=== PATIENT | female | born 1955 | race Caucasian/White ===

== ENCOUNTER 2016-08-01 | Emergency (ER) | payer MEDICARE ==
[~2016-08-01] MED LIST: ASPIRIN325 MG PO; BENAZEPRIL-HCT1 EAC1 PO; CARDIZEM SR 60M60 MG PO; CHANTIX0.5 MG PO; COMBIVENT0.074 GM/I INH; ELIQUIS 5 MG TAB5 MG PO; GABAPENTIN800 MG PO; GLUCOPHAGE1000 MG PO; HYDROCHLOROTHIA25 MG PO; IPRAT-ALBUT 0.5-3 ML INH; JANUVIA 100 MG100 MG PO; LEVEMIR FL100 UNIT/1 SQ; MEDROL DOSEPAK 24 MG PO; METOPROLOL TART25 MG PO; NEXIUM40 MG PO; NOVOLOG FL100 UNIT/1 SQ; NOVOLOG100 UNIT/1 SQ; PERCOCET 5-3251 EACH PO; SYMBICORT 160-1 INHA INH; VALIUM 5 MG TAB5 MG PO; VENTOLIN HFA 66.7 GM INH
[2016-08-01 23:09] LABS: HEMOGLOBIN 11.3 gm/dl (12.3-15.3); RED BLOOD COUNT 4.25 M/UL (4.00-5.10); WHITE BLOOD COUNT 16.8 K/UL (4.5-11.0)
[2016-12-23] MEDS ORDERED: GLUCOPHAGE1000 MG PO (09:35)
[2016-12-23] MEDS ORDERED: DILTIAZEM 24HR120 M1 PO (09:36)
[2016-12-23] MEDS ORDERED: PROVENTIL HFA6.7 GM INH (09:40)
[2016-12-23] MEDS ORDERED: NYSTATIN1 EAC5 TOP (09:42)
[2016-12-23] MEDS ORDERED: DICLOFENAC SODI75 MG PO (09:43)
[2016-12-23] MEDS ORDERED: COMBIVENT0.074 GM/I INH (09:44)
[2016-12-23] MEDS ORDERED: SYMBICORT 16010.2 GM INH (09:46)
== END 2016-08-02 03:07 | disposition home or self-care (01) ==
PROVIDERS: Family Medicine
DX: R10.11 Right upper quadrant pain (principal); R10.12 Left upper quadrant pain; R10.13 Epigastric pain; G89.29 Other chronic pain; E11.65 Type 2 diabetes mellitus with hyperglycemia; Z90.49 Acquired absence of other specified parts of digestive tract; Z87.891 Personal history of nicotine dependence; Z79.84 Long term (current) use of oral hypoglycemic drugs; Z79.4 Long term (current) use of insulin; Z79.899 Other long term (current) drug therapy
CPT/HCPCS: 36415; 80053; 81001; 82150; 82962; 83605; 83690; 85025; 96372; 99284; J1815

== ENCOUNTER 2016-09-03 22:06 | Emergency (ER) | payer MEDICARE ==
[2016-09-03 22:51] LABS: HEMOGLOBIN 12.2 gm/dl (12.3-15.3); RED BLOOD COUNT 4.58 M/UL (4.00-5.10)
[2016-09-06 16:24] LABS: WHITE BLOOD COUNT 20.4 K/UL (4.5-11.0)
[2016-12-23] MEDS ORDERED: GLUCOPHAGE1000 MG PO (09:35)
[2016-12-23] MEDS ORDERED: DILTIAZEM 24HR120 M1 PO (09:36)
[2016-12-23] MEDS ORDERED: PROVENTIL HFA6.7 GM INH (09:40)
[2016-12-23] MEDS ORDERED: NYSTATIN1 EAC5 TOP (09:42)
[2016-12-23] MEDS ORDERED: DICLOFENAC SODI75 MG PO (09:43)
[2016-12-23] MEDS ORDERED: COMBIVENT0.074 GM/I INH (09:44)
[2016-12-23] MEDS ORDERED: SYMBICORT 16010.2 GM INH (09:46)
== END 2016-09-04 03:27 | disposition home or self-care (01) ==
LOC: ER1 22:06
PROVIDERS: Student in an Organized Health Care Education/Training Program
DX: I47.1 Supraventricular tachycardia (principal); E11.65 Type 2 diabetes mellitus with hyperglycemia; I10 Essential (primary) hypertension; E78.5 Hyperlipidemia, unspecified; Z90.49 Acquired absence of other specified parts of digestive tract; Z87.891 Personal history of nicotine dependence
CPT/HCPCS: 71010; 80053; 82550; 82553; 83874; 84443; 84484; 85025; 85610; 85730; 93005; 96374; 99291

== ENCOUNTER 2016-11-08 21:41 | Emergency (ER) | payer MEDICARE, OTHER ==
[2016-11-08 22:45] LABS: HEMOGLOBIN 12.1 gm/dl (12.3-15.3); RED BLOOD COUNT 4.51 M/UL (4.00-5.10); WHITE BLOOD COUNT 17.8 K/UL (4.5-11.0)
[2016-12-23] MEDS ORDERED: GLUCOPHAGE1000 MG PO (09:35)
[2016-12-23] MEDS ORDERED: DILTIAZEM 24HR120 M1 PO (09:36)
[2016-12-23] MEDS ORDERED: PROVENTIL HFA6.7 GM INH (09:40)
[2016-12-23] MEDS ORDERED: NYSTATIN1 EAC5 TOP (09:42)
[2016-12-23] MEDS ORDERED: DICLOFENAC SODI75 MG PO (09:43)
[2016-12-23] MEDS ORDERED: COMBIVENT0.074 GM/I INH (09:44)
[2016-12-23] MEDS ORDERED: SYMBICORT 16010.2 GM INH (09:46)
== END 2016-11-09 05:48 | disposition home or self-care (01) ==
LOC: ER1 21:41
PROVIDERS: Student in an Organized Health Care Education/Training Program
DX: I47.1 Supraventricular tachycardia (principal); N39.0 Urinary tract infection, site not specified; E11.65 Type 2 diabetes mellitus with hyperglycemia; B37.9 Candidiasis, unspecified; J44.9 Chronic obstructive pulmonary disease, unspecified; I10 Essential (primary) hypertension; Z90.49 Acquired absence of other specified parts of digestive tract; Z87.891 Personal history of nicotine dependence; Z99.81 Dependence on supplemental oxygen; Z79.84 Long term (current) use of oral hypoglycemic drugs; Z79.82 Long term (current) use of aspirin; Z79.899 Other long term (current) drug therapy
CPT/HCPCS: 36415; 71010; 80053; 81001; 82009; 82550; 82553; 82800; 82962; 83735; 83874; 84484; 85025; 87086; 93005; 96372; 96374; 96375; 99285; J0153; J0696; J1815; J7030; J7050